=== PATIENT | male | born 1980 ===

== ENCOUNTER 2019-03-14 19:44 | Emergency (ER) | payer SELFPAY ==
[2019-03-14 19:56] VITALS: BMI 28.0
[2019-03-14 20:01] VITALS: TEMP 98.1
[2019-03-14] MEDS ORDERED: Oxycodone/Acetaminophen 5/325 mg Tab PO STA (20:17)
--- NOTE | 2019-03-14 20:17 | ED PDOC ---
Arrival/HPI - General Chief Complaint: Upper Extremity Problem/Injury Historian: Patient - History of Present Illness Narrative History of Present Illness (Text): 03/14/19 20:14 38 y/o male, no significant pmh, nkda, c/o lt. shoulder pain s/p hit by the door about 5 hours ago. Aching pain, aggravated by movement, no numbness or tingling, no finger/hand/wrist/forearm/elbow pain, no palpitation, no rash, no dizziness, no head/neck/back/chest/abdomen injury, no other medical or psychological complaints. Past Medical History - Provider Review Nursing Documentation Reviewed: Yes - Psychiatric Hx Substance Use: No - Anesthesia Hx Anesthesia: No Family/Social History - Physician Review Nursing Documentation Reviewed: Yes Family/Social History: Unknown Family HX Smoking Status: Heavy Smoker > 10 Cigarettes Daily Hx Alcohol Use: No Hx Substance Use: No Allergies/Home Meds Allergies/Adverse Reactions: Allergies No Known Allergies Allergy (Verified 03/14/19 20:16) Review of Systems - Review of Systems Constitutional: absent: Fatigue, Fevers Eyes: absent: Vision Changes ENT: absent: Hearing Changes Respiratory: absent: SOB, Cough Cardiovascular: absent: Chest Pain Gastrointestinal: absent: Abdominal Pain, Diarrhea, Nausea, Vomiting Musculoskeletal: Arthralgias. absent: Back Pain, Neck Pain, Joint Swelling, Myalgias Skin: absent: Rash, Pruritis Neurological: absent: Headache, Dizziness Hemo/Lymphatic: absent: Adenopathy, Easy Bleeding Psychiatric: absent: Anxiety, Depression, Suicidal Ideation Physical Exam Vital Signs Reviewed: Yes Vital Signs Temp Pulse Resp BP Pulse Ox 03/14/19 20:00 98.1 F 93 H 14 127/90 98 Temperature: Afebrile Blood Pressure: Normal Pulse: Regular Respiratory Rate: Normal Appearance: Positive for: Well-Appearing, Non-Toxic, Comfortable Pain Distress: Moderate Mental Status: Positive for: Alert and Oriented X 3 - Systems Exam Head: Present: Atraumatic, Normocephalic Pupils: Present: PERRL Extroacular Muscles: Present: EOMI Conjunctiva: Present: Normal Mouth: Present: Moist Mucous Membranes Neck: Present: Normal Range of Motion Respiratory/Chest: Present: Clear to Auscultation, Good Air Exchange. No: Respiratory Distress, Accessory Muscle Use Cardiovascular: Present: Regular Rate and Rhythm, Normal S1, S2. No: Murmurs Abdomen: No: Tenderness, Distention, Peritoneal Signs Back: Present: Normal Inspection Upper Extremity: Present: Normal Inspection, NORMAL PULSES, Neurovascularly Int act, Capillary Refill < 2s, Other (LUE: +ttp on the proximal humerus region, no deformity, no finger/hand/wrist/forearm/scaphoid/elbow/humerus tenderness excep the lt. proximal humerus region, no deformity, FROM except lt. shoulder joint movement with pain, sensation intact, motor 5/5, neurovasuclar intact, normal 2pts. finger discrimination. ). No: Cyanosis, Edema, Swelling, Erythema, Deformity Lower Extremity: Present: Normal Inspection. No: Edema Neurological: Present: GCS=15, CN II-XII Intact, Speech Normal Skin: Present: Warm, Dry, Normal Color. No: Rashes Psychiatric: Present: Alert, Oriented x 3, Normal Insight, Normal Concentration Medical Decision Making ED Course and Treatment: 03/14/19 20:16 -Lt. shoulder xray -motrin and percocet -observe and reassess 03/14/19 21:46 -Lt. shoulder xray: ER Wet read, no fracture or dislocation but [facility] rad show No acute fracture detected. Evidence of a [place] classification type II acromioclavicular separation injury. -Lt. humerus xray: ER Wet read, no fracture or dislocation. -Sling applied with neurovascular intact. -Discussed about the xray -Discharge home with sling, motrin, follow up with your own pmd and orthopedic within 2 days, return to the ER for any new or worsening signs or symptoms. - RAD Interpretation Radiology Orders: Lt. shoulder: EXAM: CR left Shoulder, 3 View. CLINICAL HISTORY: Pain COMPARISON: None provided. FINDINGS: BONES: No acute fracture or aggressive appearing osseous lesion. JOINTS: There is slight elevation of the distal left clavicle noted compatible with a Isaias classification type II acromioclavicular separation injury. The shoulder joint appears adequately maintained. SOFT TISSUES: The soft tissues are unremarkable. IMPRESSION: 1. No acute fracture detected. 2. Evidence of a [place] classification type II acromioclavicular separation injury. Electronically signed on March 14, 2019 9:21:06 PM EDT by: Jim Shah M.D., M.B.A., Certified By [employer] Trained MRI and CT Specialist --------- Lt. humerus: PROCEDURE: Radiographs of the left humerus. HISTORY: door injury, pain COMPARISON: None. TECHNIQUE: 2 views obtained. FINDINGS: BONES: Normal. No fracture or focal lesion. SOFT TISSUES: Normal. OTHER FINDINGS: None. IMPRESSION: Normal radiographs of left humerus. Galley Stripper: Radiologist - PA / ANIMAL RESEARCHER / Resident Statement / has reviewed & agrees with the documentation as recorded. Disposition/Present on Arrival - Present on Arrival Any Indicators Present on Arrival: No History of DVT/PE: No History of Uncontrolled Diabetes: No Urinary Catheter: No History of Decub. Ulcer: No History Surgical Site Infection Following: None - Disposition Have Diagnosis and Disposition been Completed?: Yes Diagnosis: Shoulder injury, Shoulder pain, Acromioclavicular joint injury Disposition: HOME/ ROUTINE Disposition Time: 20:17 Patient Plan: Discharge Condition: IMPROVED Additional Instructions: -Discharge home with sling, motrin, follow up with your own pmd and orthopedic within 2 days, return to the ER for any new or worsening signs or symptoms. Prescriptions: Ibuprofen [Motrin] 600 mg PO QID PRN #30 tab PRN Reason: Other Referrals: PCP,NO [Primary Care Provider] - Follow up with primary Bao Ortega MD [Staff Provider] - Follow up with primary [facility] [Outside] - Follow up with primary [facility] [Outside] - Follow up with primary Forms: [employer] (Cuban), SCHOOL NOTE
[2019-03-14 22:03] VITALS: BP 125/82; PULSE 87; RESP 18; O2SAT 100
--- NOTE | 2019-03-15 11:14 | RAD ---
PROCEDURE: Radiographs of the left humerus. HISTORY: door injury, pain COMPARISON: None. TECHNIQUE: 2 views obtained. FINDINGS: BONES: Normal. No fracture or focal lesion. SOFT TISSUES: Normal. OTHER FINDINGS: None. IMPRESSION: Normal radiographs of left humerus.
--- NOTE | 2019-03-15 11:14 | RAD ---
Date of service: 03/14/2019 PROCEDURE: Radiographs of the Left Shoulder HISTORY: door injury, pain COMPARISON: No prior. TECHNIQUE: 3 views obtained. FINDINGS: BONES: Normal. No fracture. JOINTS: Normal. Glenohumeral and acromioclavicular joints preserved. No osteoarthritis. SOFT TISSUES: Normal. OTHER FINDINGS: None. IMPRESSION: Normal radiographs of the left shoulder.
== END 2019-03-14 22:10 | disposition home or self-care (01) ==
LOC: ED 19:44
DX: S49.92XA Unspecified injury of left shoulder and upper arm, initial encounter (principal); W22.8XXA Striking against or struck by other objects, initial encounter; F17.210 Nicotine dependence, cigarettes, uncomplicated; M25.512 Pain in left shoulder